=== PATIENT | male | born 1980 | race Caucasian/White ===

== ENCOUNTER 2021-02-14 16:47 | Emergency (ER) | payer OTHER ==
[~2021-02-14] VITALS: Ht 177.8 cm; Wt 99.8 kg
[2021-02-14] MEDS ORDERED: KETO10TA2 PO (18:29)
[2021-02-14] MEDS ORDERED: MEDROLPACK PO (18:29)
[2021-02-14] MEDS ORDERED: NORFLEX100MG PO (18:29)
== END 2021-02-14 18:20 | disposition home or self-care (01) ==
LOC: ER 16:47
DX: M62.838 Other muscle spasm (principal); M54.2 Cervicalgia